=== PATIENT | male | born 1965 | race Caucasian/White ===

== ENCOUNTER 2016-08-20 11:39 | Observation (INO) | payer BC ==
[2005-04-04 11:32] VITALS: BP 138/76
[~2016-08-20] VITALS: Ht 175.3 cm; Wt 108.5 kg
[2016-08-20] VITALS (10 sets, daily range): BP systolic 122–143; BP diastolic 52–87; PULSE 73–100; TEMP 94.2–98.8
[2016-08-20] MEDS ORDERED: MOTRIN 200200 MG/TAB PO (12:30)
[2016-08-20 14:22] LABS: PH 6 (5-8); SQUAMOUS EPITHELIAL 0-2 /hpf; URINE APPEARANCE Clear; URINE BACTERIA None Seen /hpf; URINE BILIRUBIN Negative (NEGATIVE); URINE BLOOD 2+ (NEGATIVE); URINE COLOR Yellow; URINE GLUCOSE Negative (NEGATIVE); URINE KETONE Trace (NEGATIVE); URINE RBC >50 /hpf; URINE UROBILINOGEN Negative (NEGATIVE)
[2016-08-20 14:31] LABS: BASO # 0.1 (0.0-0.2); BASO % 0.6 % (0.0-2.0); EOS # 0.2 (0.0-0.7); GRAN # 6.8 (1.4-6.5); GRAN % 62.3 % (42.2-75.2); HEMATOCRIT 43.4 % (42.0-52.0); HEMOGLOBIN 14.4 g/dl (13.5-18.0); LYMPH # 2.9 (1.2-3.4); LYMPH % 26.5 % (20.0-51.0); MEAN CELL VOLUME 86 fl (80.0-100.0); MEAN CORPUSCULAR HEMOGLOBIN 29 pg (27.0-31.0); MEAN CORPUSCULAR HGB CONC 33 g/dl (33.0-37.0); MEAN PLATELET VOLUME 10.2 fl (7.4-10.4); MONO # 0.9 (0.1-0.6); MONO % 8.1 % (1.7-9.3); PLATELET COUNT 189 K/mm3 (130-400); RED BLOOD COUNT 5.06 M/mm3 (4.20-5.60); WHITE BLOOD COUNT 10.9 K/mm3 (4.8-10.8)
[2016-08-20 15:09] LABS: ADJUSTED CALCIUM 8.8 mg/dL (8.4-10.2); ALBUMIN 4.1 gm/dL (3.5-5.0); BILIRUBIN,TOTAL 0.8 mg/dL (0.0-1.0); CALCIUM 8.9 mg/dL (8.4-10.2); CREATININE, serum 1.05 mg/dL (0.66-1.25); POTASSIUM 3.9 mmol/L (3.4-5.0); TOTAL PROTEIN 7.2 gm/dL (6.4-8.2)
== END 2016-08-20 22:00 | disposition home or self-care (01) ==
LOC: SDCO 11:39 → SURG 11:39 → SDCO 16:45 → SURG 16:45
PROVIDERS: Urology
DX: N20.1 Calculus of ureter (principal); I10 Essential (primary) hypertension; Z87.442 Personal history of urinary calculi
CPT/HCPCS: C1769; C2617; G0378; J0360; J1100; J1885; J2270; J2405; J2550; J2704; J3010; J7030; J7120

== ENCOUNTER 2019-06-19 00:47 | Inpatient (IN) | payer OTHER ==
[2019-06-19] VITALS (538 sets, daily range): BP systolic 109–145; BP diastolic 71–89; PULSE 70–99; TEMP 97–98.8; O2SAT 36–100
[~2019-06-19] VITALS: Ht 172.7 cm; Wt 103.9 kg
[~2019-06-19 00:47] MED LIST: COREG 6.256.25 MG/TA PO; ELIQUIS 5MG PO; LANOXIN 0.25M0.25 MG PO; LASIX 20MG TABL20 MG PO; MOTRIN 200200 MG/TAB PO
--- NOTE | 2019-06-19 02:30 | NUR ---
PT ADMITTED VIA EMS FROM [facility] AFTER INCREASED DYSPNEA, EDEMA. PT IS IN AFIB.
[2019-06-19] MEDS ORDERED: CORDARONE200 MG/TAB PO (02:52)
[2019-06-19] MEDS ORDERED: PRINIVIL5 MG PO (02:53)
[2019-06-19 03:23] LABS: HEMATOCRIT 40.9 % (42.0-52.0); HEMOGLOBIN 13.7 g/dl (13.5-18.0); MEAN CELL VOLUME 89 fl (80.0-100.0); MEAN CORPUSCULAR HEMOGLOBIN 30 pg (27.0-31.0); MEAN CORPUSCULAR HGB CONC 34 g/dl (33.0-37.0); MEAN PLATELET VOLUME 10.2 fl (7.4-10.4); PLATELET COUNT 179 K/mm3 (130-400); REDCELL DISTRIBUTION WIDTH-CV 14.7 % (11.5-14.5)
[2019-06-19 03:30] LABS: INR 1.6 (0.8-3.0); PROTHROMBIN TIME 19.3 SECONDS (9.7-12.8)
[2019-06-19 03:37] LABS: ALBUMIN 4.2 gm/dL (3.5-5.0); BILIRUBIN,TOTAL 1.4 mg/dL (0.0-1.0); C-REACTIVE PROTEIN 8.1 mg/dL (0.0-0.9); CREATININE, serum 1.15 (0.66-1.25); MAGNESIUM 1.8 mg/dL (1.6-2.3); PHOSPHOROUS 4.6 mg/dL (2.5-4.5); POTASSIUM 4.1 mmol/L (3.4-5.0); TOTAL PROTEIN 7.7 gm/dL (6.4-8.2)
[2019-06-19 03:40] LABS: BAND 1 % (0-10); LYMPHOCYTE 18 % (20.0-51.0); NEUTROPHILS 71 % (42.0-75.2); PLATELET ESTIMATE NORMAL (NORMAL)
[2019-06-19 03:51] LABS: TROPONIN-I 0.076 ng/mL (0.000-0.035)
[2019-06-19 04:04] LABS: THYROID STIMULATING HORMONE 1.73 uIU/mL (0.465-4.680)
[2019-06-19] MEDS ORDERED: CIALIS20 MG PO (04:51)
[2019-06-19 05:32] LABS: ARTERIAL BLD GAS O2 SATURATION 92.6 % (92-100); ARTERIAL BLD GAS TCO2 CT 25.4; ARTERIAL BLOOD GAS BASE EXCESS 0.6 (-2-2); ARTERIAL BLOOD GAS HCO3 24.3 meq/L (22-26); ARTERIAL BLOOD GAS PCO2 36.1 mmHg (35-45); ARTERIAL BLOOD GAS PO2 65.7 mmHg (80-100); ARTERIAL BLOOD GAS pH 7.45 (7.35-7.45)
[2019-06-19 05:33] LABS: C-REACTIVE PROTEIN 8.1 mg/dL (0.0-0.9)
[2019-06-19 06:07] LABS: PARTIAL THROMBOPLASTIN TIME 34.9 SECONDS (26.0-37.0)
[2019-06-19 07:01] LABS: MUCOUS Present /lpf; PH 5 (5-8); SQUAMOUS EPITHELIAL 0-2 /hpf; URINE APPEARANCE Hazy; URINE BACTERIA None Seen /hpf; URINE BILIRUBIN Negative (NEGATIVE); URINE BLOOD 3+ (NEGATIVE); URINE COLOR Yellow; URINE GLUCOSE Negative (NEGATIVE); URINE KETONE Negative (NEGATIVE); URINE LEUKOCYTE ESTERASE 1+ (NEGATIVE); URINE NITRATE Negative (NEGATIVE); URINE PROTEIN(semi-quant) 1+ (NEGATIVE); URINE RBC >50 /hpf; URINE UROBILINOGEN Negative (NEGATIVE)
--- NOTE | 2019-06-19 07:02 | NUR ---
PT'S O2 SATS POOR. PT PUT ON OXYMASK 7 LITERS. O2 SATS DOING MUCH BETTER. ABGs DRAWN. SHOE LINING FITTER NOTIFIED OF PT'S POOR EKG BY ELIAS.
--- NOTE | 2019-06-19 07:30 | NUR ---
Bedside shift report received from JO Hernandez. Patient is sitting at the bedside, feet dangling. Full assessment completed. Vital signs stable. Bed in lowest position. Side rails up x2. Call light and personal items within reach. Patient has no complaints or concerns at this time.
--- NOTE | 2019-06-19 07:35 | NUR ---
PT'S HEP Xa ELEVATED, 1.0. HEPARIN ON HOLD UNTIL NEXT HEP Xa.
[2019-06-19 09:19] LABS: TROPONIN-I 0.066 ng/mL (0.000-0.035)
--- NOTE | 2019-06-19 10:06 | NUR ---
Discussed Heparin gtt with Dr. Lei and ordered to continue with initiating gtt regardless of most recent HepXa of 0.75. Pharmacist, Vinayak, notified of situation and discussed what to initiate gtt at given current situation.
--- NOTE | 2019-06-19 10:30 | NUR ---
Discussed with Vinayak pharmacist about initiation of Heparin gtt. Gtt initiated at 1800u/hr or 18ml/hr and will recheck HepXa in 6 hours and follow high dose protocol.
[2019-06-19 12:22] LABS: COLLECTION METHOD CLEAN CATCH
--- NOTE | 2019-06-19 13:51 | NUR ---
SW contacted the patient to discuss discharge plan. The patient lives in [place] with his , Noemi (ph#[phone]). He reports independence with ADLs and does not have any DME. The patient's PCP is Dr. Madhu Bishop and he receives his medications at [facility] or [facility]. He reports no difficulties obtaining his meds. The patient does not have advanced directives completed. The patient plans to return back home with his upon discharge. SW to continue to follow as needed.
[2019-06-19 16:59] LABS: TROPONIN-I 0.045 ng/mL (0.000-0.035)
--- NOTE | 2019-06-19 19:15 | NUR ---
Bedside shift report given to JO Moore and care handed over at this time.
--- NOTE | 2019-06-19 22:30 | NUR ---
Report given to JO Fall.
--- NOTE | 2019-06-19 23:34 | NUR ---
Bedside report received from JO Moore
[2019-06-20] VITALS (790 sets, daily range): BP systolic 118–175; BP diastolic 64–104; PULSE 71–93; TEMP 97.8–98.8; O2SAT 86–100
--- NOTE | 2019-06-20 06:48 | NUR ---
Patient states he is not feeling well at all. Gave patient some options that we could try, patient elected to have his O2 increased slightly. Will check in again shortly.
[2019-06-20 07:03] LABS: BASO # 0.1 (0.0-0.2); BASO % 0.6 % (0.0-2.0); EOS # 0.5 (0.0-0.7); EOS % 3.5 % (0-4.0); GRAN # 9.9 (1.4-6.5); GRAN % 69.9 % (42.2-75.2); HEMOGLOBIN 12.2 g/dl (13.5-18.0); LYMPH # 2.4 (1.2-3.4); MEAN CELL VOLUME 89 fl (80.0-100.0); MEAN CORPUSCULAR HEMOGLOBIN 30 pg (27.0-31.0); MEAN CORPUSCULAR HGB CONC 33 g/dl (33.0-37.0); MEAN PLATELET VOLUME 10.8 fl (7.4-10.4); MONO # 1.2 (0.1-0.6); MONO % 8.6 % (1.7-9.3); PLATELET COUNT 171 K/mm3 (130-400); REDCELL DISTRIBUTION WIDTH-CV 14.6 % (11.5-14.5)
[2019-06-20 07:04] LABS: HEMATOCRIT 36.6 % (42.0-52.0)
[2019-06-20 07:15] LABS: CALCIUM 8.2 mg/dL (8.4-10.2); CHOLESTEROL RISK RATIO 4.2; CREATININE, serum 1.17 (0.66-1.25); POTASSIUM 3.7 mmol/L (3.4-5.0)
--- NOTE | 2019-06-20 07:40 | NUR ---
Bedside report given to JO Mejia
--- NOTE | 2019-06-20 11:22 | NUR ---
Assessment completed, alert/oriented, vital signs stable, denies pain, lungs CTA/ I have decreased patient O2 to 3L. NC down from 4, sats are upper 90%'s, heart irregular/ A.fib on tele, COVID screen pending, transitioning from IV AMio to PO per , patient is sitting at bedside/ unable to tolerate laying flat, restricting fluid intake to 1500ml/ day, he denies other needs at this time, will continue to monitor
--- NOTE | 2019-06-20 13:59 | NUR ---
HepXa level 0.66, no rate change, continue TRA 14ml/hr, next level check at 2000
--- NOTE | 2019-06-20 19:30 | NUR ---
Bedside report received from JO Mejia
--- NOTE | 2019-06-20 20:00 | NUR ---
Patient sitting at bedside with oxygen off and saturating well at 96%. Patient is alert and oriented x4. No complaints of pain. States he is feeling much better today. Assessment complete. Patient's lungs sound coarse in all gonzalez with diminished bases. HR and rhythm are irregular as he is in afib. Patient has an audible murmur. Bowel sounds active x4. Peripheral pulses are palpable. +1 pitting BLE edema. educated patient on heart cath procedure and the basics on what to expect during and post procedure. Patient has no further questions at this time. Will continue to monitor. Call light within reach.
[2019-06-21] VITALS (609 sets, daily range): BP systolic 99–140; BP diastolic 63–79; PULSE 70–107; TEMP 95–98.4; O2SAT 61–100
[2019-06-21 05:02] LABS: BASO # 0.1 (0.0-0.2); BASO % 0.5 % (0.0-2.0); EOS # 0.2 (0.0-0.7); EOS % 1.2 % (0-4.0); HEMATOCRIT 37.3 % (42.0-52.0); HEMOGLOBIN 12.2 g/dl (13.5-18.0); LYMPH # 2.5 (1.2-3.4); LYMPH % 16.4 % (20.0-51.0); MEAN CELL VOLUME 90 fl (80.0-100.0); MEAN CORPUSCULAR HEMOGLOBIN 29 pg (27.0-31.0); MEAN CORPUSCULAR HGB CONC 33 g/dl (33.0-37.0); MEAN PLATELET VOLUME 10.7 fl (7.4-10.4); MONO # 1.4 (0.1-0.6); MONO % 9.3 % (1.7-9.3); PLATELET COUNT 171 K/mm3 (130-400); RED BLOOD COUNT 4.15 M/mm3 (4.20-5.60); REDCELL DISTRIBUTION WIDTH-CV 14.4 % (11.5-14.5)
[2019-06-21 05:13] LABS: CALCIUM 8.6 mg/dL (8.4-10.2); CREATININE, serum 1.19 (0.66-1.25); MAGNESIUM 2.3 mg/dL (1.6-2.3); POTASSIUM 4.2 mmol/L (3.4-5.0)
--- NOTE | 2019-06-21 06:00 | NUR ---
Patient has done well throughout the night. Cortes catheter was removed, patient tolerated well. Patient has urinated since catheter removal. Patient was able to give himself a bed bath, do oral care, and get up to the toilet. Patient does become dyspneic with exertion, but recovers well on the 3L NC. Patient was able to lay on his side at a 50 degree angle over night, when previously he had not been able to lay at all. States he still is unable to lay on his back, but his side works well. Overall patient appears to be feeling much better and is in better spirits. Patient has had no complaints of pain. Patient is very thankful for the nursing care he has received. Patient has no further needs at this time. Will continue to monitor. Call light within reach.
--- NOTE | 2019-06-21 07:27 | NUR ---
Bedside report given to JO Thomas
--- NOTE | 2019-06-21 07:33 | NUR ---
Report from Eufemia OSORIO.
--- NOTE | 2019-06-21 09:45 | NUR ---
PT RESTING IN BED, DENIES NEEDS AT THIS TIME. LUNGS CLEAR WITH DIMINISHED BASES. DR. ARIAS AND HENRIQUET IN TO SEE PT THIS AM. PLAN ON CARDIAC CATH LATER TODAY.
--- NOTE | 2019-06-21 11:59 | NUR ---
SEE MERGE FOR MEDICATION ADMINISTRATION TIMES AND INTRA AND POST SEDATION ASSESSMENTS.
--- NOTE | 2019-06-21 14:10 | NUR ---
REPORT FROM SIMA, PT TO ROOM 12. UP TO BR VOIDED AND RETURNED TO BED.
--- NOTE | 2019-06-21 17:47 | NUR ---
REPORT TO CHARITY OSORIO.
--- NOTE | 2019-06-21 18:16 | NUR ---
report to Dawn OSORIO to floor room 317.
--- NOTE | 2019-06-21 18:30 | NUR ---
PT ARRIVED TO FLOOR, BELONGINGS IN ROOM, PT ATTACHED TO VITALS CART FOR POST OP VITALS, BAND ON RIGHT WRIST DEFLATED, NO BRUISING, WRIST BRACE ON WELL. PT MORE COMFORTABLE SITTING UP, ON RA. WATER AND TISSUE BROUGHT IN. NO OTHER NEEDS AT THIS TIME
--- NOTE | 2019-06-21 21:00 | NUR ---
Patient assessed at this time. Alert and oriented x 4, and able to make needs known. Denies having pain and discomfort. Peripheral IV to left AC and right hand. Denies SOB and dyspnea. Currently on room air. LS CTA in upper lobes, diminished in lower lobes. Respirations even and unlabored. HRR. Telemetry in place. Capillary refill less than 3 seconds. Non-tenting skin turgor. Right radial heart cath site. Band taken off and bandaid placed. No hematoma. Denies pain and discomfort. Right arm board in place for protection. BSAx4. Abdomen soft and non-tender. 2+ edema BLE. Reports he believes edema is much better. Continues on IV Bumex. RT putting BIPAP on at this time. Call light within reach.
--- NOTE | 2019-06-21 21:15 | NUR ---
PLACED PT ON BIPAP 14/ 30%. TOLERATING WELL
--- NOTE | 2019-06-21 21:37 | NUR ---
Patient called and stated he could not wear BIPAP mask anymore. Taken off. Called and updated RT.
--- NOTE | 2019-06-21 21:40 | NUR ---
RN CALLED BIPAP OFF. PATIENT HAVING FLASHBACKS LINUX NETWORK ENGINEER.
[2019-06-22 04:11] VITALS: BP 128/61; PULSE 80; TEMP 97.7
--- NOTE | 2019-06-22 05:39 | NUR ---
Patient has denied having pain and discomfort this shift. Reports SOB only when laying down. HOB elevated. Remained on room air throughout the night. Voices no questions, needs, or concerns at this time. Resting in bed with call light within reach.
[2019-06-22 08:21] VITALS: BP 126/58; PULSE 92; TEMP 98.2
--- NOTE | 2019-06-22 08:30 | NUR ---
Assessment complete. Patient sitting up on the edge of bed. A&Ox4. Denies pain and discomfort. IV CDI, fluids infusing. VSS 3L NC O2. No reported SOB. Nurse instructed patient to elevate legs as much as possible. Patient verbalized an understanding. No further needs expressed from patient.
--- NOTE | 2019-06-22 11:18 | NUR ---
SW attended clinical rounds with the team. The patient is to discharge home today, 06/21. After rounds SW met with the patient to revisit the discharge plan of going home and if he had any concerns or needs going home. The patient denied any needs and states he has a " that take care of him very well." There are no additional needs at this time.
[2019-06-22] MEDS ORDERED: OMNICEF 300MG300 MG PO (11:20)
[2019-06-22] MEDS ORDERED: LIPITOR20 MG PO (11:21)
[2019-06-22] MEDS ORDERED: ASPIRIN E.C. 8181 MG PO (11:21)
[2019-06-22] MEDS ORDERED: PROTONIX 40MG T40 MG PO (12:12)
[2019-06-22] MEDS ORDERED: PREDNISONE20 MG PO (12:13)
--- NOTE | 2019-06-22 13:24 | NUR ---
IV removed, tip intact, patient tolerated well, bandaid applied. Discharge paperwork reviewed with patient. Patient verbalized an understanding of following doctors orders. Personal belongings with patient. No further needs expressed from patient. Patient transfered to vehicle by nursing staff in wheelchair
== END 2019-06-22 13:26 | disposition home or self-care (01) | DRG 280 ==
LOC: ICU 00:47 → MEDICAL 01:54 → EU 01:54 → MEDICAL 06-21 18:15
PROVIDERS: Nurse Practitioner Family; Student in an Organized Health Care Education/Training Program; ADMIT Internal Medicine Cardiovascular Disease
PROC: 4A023N7 Measurement of Cardiac Sampling and Pressure, Left Heart, Percutaneous Approach (ICD-10-PCS; principal; 2019-06-21)
PROC: B2111ZZ Fluoroscopy of Multiple Coronary Arteries using Low Osmolar Contrast (ICD-10-PCS; 2019-06-21)
DX: I21.4 Non-ST elevation (NSTEMI) myocardial infarction (principal); J96.01 Acute respiratory failure with hypoxia; I50.23 Acute on chronic systolic (congestive) heart failure; N39.0 Urinary tract infection, site not specified; J98.11 Atelectasis; R65.10 Systemic inflammatory response syndrome (SIRS) of non-infectious origin without acute organ dysfunction; E66.01 Morbid (severe) obesity due to excess calories; E78.5 Hyperlipidemia, unspecified; I11.0 Hypertensive heart disease with heart failure; J43.9 Emphysema, unspecified; Z20.828 Contact with and (suspected) exposure to other viral communicable diseases; I35.0 Nonrheumatic aortic (valve) stenosis; E83.42 Hypomagnesemia; E11.65 Type 2 diabetes mellitus with hyperglycemia; Z87.442 Personal history of urinary calculi
CPT/HCPCS: 99223-AI; 99233-AI; 99239; A9284; C9113; J0282; J1644; J1815; J2250; J2543; J3010; J3475; J7512; Q9967